=== PATIENT | female | born 1985 | race Hispanic/Latino ===

== ENCOUNTER 2017-04-11 05:42 | Day surgery (SDC) | payer OTHER ==
[~2017-04-11] VITALS: Ht 154.9 cm; Wt 69.5 kg
[2017-04-11] VITALS (9 sets, daily range): BP systolic 100–115; BP diastolic 58–70; PULSE 67–81; RESP 16–23; O2SAT 97–100
[~2017-04-11 05:42] MED LIST: ASCO500C6 PO; VIT1TABL83 PO
[2017-04-11] MEDS ORDERED: Dexamethasone 4 mg/mL Inj ONE (05:43)
[2017-04-11] MEDS ORDERED: Neostigmine 1 mg/mL 10 mL Inj ONE (05:43)
[2017-04-11] MEDS ORDERED: fentaNYL-PF 50 mCg/mL 2 mL Inj ONE (05:43)
[2017-04-11] MEDS ORDERED: MetoCLOpramide 5 mg/mL 2 mL Inj ONE (05:43)
[2017-04-11] MEDS ORDERED: Glycopyrrolate 0.2 MG/ML 1mL Inj ONE (05:43)
[2017-04-11] MEDS ORDERED: Propofol 10,000 mCg/mL 20 mL Inj ONE (05:43)
[2017-04-11] MEDS ORDERED: Rocuronium 10 mg/mL 5 mL Inj ONE (05:43)
[2017-04-11] MEDS ORDERED: Ondansetron 2 mg/mL 2 mL Inj ONE (05:43)
[2017-04-11] MEDS: Lactated Ringer's 1,000 ML IV SCH ×2 (05:57→07:51)
[2017-04-11] MEDS ORDERED: CeFAZolin 2 Gm/50 mL D5W IV Premix IV ONE (06:00)
[2017-04-11] MEDS ORDERED: MetoCLOpramide 5 mg/mL 2 mL Inj IVPUSH PRN (07:50)
[2017-04-11] MEDS ORDERED: fentaNYL-PF 50 mCg/mL 2 mL Inj IVPUSH PRN (07:50)
[2017-04-11] MEDS ORDERED: Bupivacaine-MPF 0.5% W/EPI 30 mL Inj INFILTRATE ONE (07:50)
[2017-04-11] MEDS ORDERED: Lactated Ringer's 1,000 ML IV SCH (07:50)
[2017-04-11] MEDS ORDERED: Lactated Ringer's 500 ML IV PRN (07:50)
[2017-04-11] MEDS ORDERED: Bupivacaine-MPF 0.25%/EPI 30 mL Inj INFILTRATE ONE (07:50)
[2017-04-11] MEDS ORDERED: Atropine 0.4 mg/mL Inj IVPUSH PRN (07:50)
[2017-04-11] MEDS ORDERED: HYDROmorphone 1 mg/mL Inj IVPUSH PRN (07:50)
[2017-04-11] MEDS ORDERED: Labetalol 5 mg/mL 4 mL Inj IV PRN (07:50)
[2017-04-11] MEDS ORDERED: Ondansetron 2 mg/mL 2 mL Inj IVPUSH PRN (07:50)
[2017-04-11] MEDS ORDERED: EPHEDrine Sulfate 50 mg/mL Inj IVPUSH PRN (07:50)
[2017-04-11] MEDS ORDERED: Phenylephrine 10,000 mCg/mL Inj IVPUSH PRN (07:50)
--- NOTE | 2017-04-11 07:50 | PCM.HPANE ---
Patient Data Surgeon Admitting Provider: Attending Provider:Stephy Ignacio MD Primary Care Physician:Luisa Weeks MD Other Provider:Rhonda Correaingham Anesthesia Reason for Visit Umbilical Hernia Ht/WT & BMI Height (Feet): 5 Height (Inches): 1 Weight (Kilograms): 69.5 Body Mass Index 28.00 Allergies Coded Allergies: promethazine (Verified Allergy, Unknown, tongue swelling, 04/05/17) Past Anesthesia History Anesthesia History: Denies:: Abnormal Airway, Anesthesia Reactions, Difficult Intubation, Fam Anesthesia Reaction, Fam Malignant Hypertherm, Malignant Hyperthermia Diabetes History Hx Diabetes?: No MRSA MRSA: No Medications Hypertension Medication: No Home Meds Incl Beta Holly: No Discontinued Reported Medications Vit B Comp/C/FA/Iron/Vit E (Vitamin B Complex Tablet)1 Each Tablet1 Each PO DAILY 04/05/17 Ascorbic Acid (Vitamin C)500 Mg Capsule.er500 Mg PO DAILY 04/05/17 History History of ENT Problems?: No HEENT History: Denies:: Abnormal Airway Cataracts Difficult Intubation Dysphagia Glaucoma Hearing Problem Sinus Problem Denture Type: None Teeth Condition: Within Normal Limits Hx of Heart Problems?: No Cardiovascular History: Denies:: AICD Abdominal Aortic Aneurism Atrial Fibrillation Cardiac Surgery Chest Pain Congestive Heart Failure Coronary Artery Disease Edema Heart Murmur Hypertension Irregular Heartbeat Pacemaker Peripheral Vascular Rheumatic Fever Thrombophlebitis Valvular Heart Disease Hx of Respiratory Problem?: No Respiratory History: Denies:: Asthma COPD Chest Surgery Cough Dyspnea Emphysema Hemoptysis Oxygen Administration Pneumonia Pulmonary Embolism Tuberculosis Use of C-PAP Machine Use of Inhalers / NEBS Hx Neurologic Problems?: No Neurological History: Denies:: Alzheimer's Disease CVA Dementia Dizziness Headaches Multiple Sclerosis Parkinson's Disease Peripheral Neuropathy Seizures TIA Hx of GI Problems?: Yes Gastrointestinal History: Denies:: Cirrhosis Diverticulitis Gall Bladder Disease Gastroesphageal Reflux Gastrointestinal Bleeding Heartburn Hepatitis Hiatal Hernia Liver Disease Rectal Bleeding Other GI Pertinent History: umbilical hernia current admission problem Hx of Problems?: No Genitourinary History: Denies:: HX of Hemodialysis Kidney Stones Urinary Tract Infection HX of Peritoneal Dialysis: No Female Hx: Denies:: Currently Endometriosis Pelvic Inflammatory Problems with Breasts? Skin History: Denies:: History Skin Disorders? Pressure Ulcers Hx Musculoskeletal Problems?: No Musculoskeletal History: Denies:: Back Injury Degenerative Joint Fibromyalgia Joint Replacement Musculoskeletal Trauma Myasthenia Gravis Osteoarthritis Rheumatoid Arthritis Systemic Lupus Hx of Psycho/Social Problems?: No Psycho Social History: Denies:: Anxiety Bipolar Disorder Hx Depression Suicide Attempt Hx Surgeries?: Yes (c sections x2, tonsillectomy) Hx Any Other Health Problems?: Yes Other History: Denies:: Cancer Thyroid Disease History Blood Transfusions: Positive for:: Accept Blood Products? Denies:: Blood Transfusions Hx Diabetes: No Hx Alcohol Use: YesAlcoholic Drinks Per Day: drinks one to two drinks monthly Hx Substance Use: NoHave You Smoked inLast 12 mo: No Stop/Bang S-Snoring: Do You Snore Loudly: No T-Tired: feel tired, fatigued: No O-Obsered: Observed not breath: No P-Blood Pressure: treated: No B- Body Mass Index > 35 kg/m2: No A- Age over 50: No N- Neck Large Circumference: No G- Gender Male: No ROLA Total Score: 0 Risk Assessment Category Category 1A: Patient has history of documented sleep apnea, and HAS NOT received any narcotic, sedative or anesthesia administration during this stay. Category 1B: Patient has history of documented sleep apnea, and HAS received any narcotic , sedative or anesthesia administration during this stay Category 2: Patient has SUSPECTED Obstructive Sleep Apnea, and HAS received any narcotic , sedative or anesthesia administration during this stay. Category 3: Patient has SUSPECTED Obstructive Sleep Apnea and HAS NOT received narcotic, sedative or anesthesia administration during this stay. Category 4: Outpatient in Procedural Areas with known sleep apnea or who screen positive for High Risk via the STOP/BANG questionnaire. Exam Exam Vital Signs Vital Signs Date Time Temp Pulse Resp B/P Pulse Ox O2 Delivery O2 Flow Rate FiO2 04/11/17 06:10 36.5 67 16 105/67 98 Room Air General Appearance: Alert, Oriented X3, Cooperative, No Acute Distress HEENT/AIRWAY: MP 2, Neck Movement (FROM) Lungs: Clear to Auscultation, Normal Air Movement Heart: Exam Unremarkable, Regular Rate/Rhythm, No Murmurs/Rubs/Gallops Meds/Labs/Diagnostics Admission Meds Current Medications Lactated Ringer's (Lr) 1,000 ml @ 120 mls/hr [id number] IV Last administered on t 05:57; Start 04/11/17 at 05:00; Stop 04/11/17 at 13:19 Plan Impression Patient chart reviewed, patient interviewed and anesthestic plan with risks, benefits, and alternatives discussed, and informed consent obtained. NPO per Anesth. Guidelines: Yes ASA Physical Status: ASA1 Normal Healthy Anesthetic Plan: GA Bene/Risks/Altern/Consents: Yes HP Complete Prior to Induction: Yes Tristian Colorado MD Apr 11, 2017 07:10
--- NOTE | 2017-04-11 08:47 | PCM.SURGOP ---
Surgical Operative Report Date of Service: Apr 11, 2017 Pre Operative Diagnosis Symptomatic umbilical hernia Post Operative Diagnosis Symptomatic umbilical hernia Procedure: Open primary umbilical hernia repair Surgeon and Build Engineer: Surgeon: Stephy Ignacio MD Assistants: Bladimir Malave MD R3; Nano Sims MS3 Indication for Procedure This is a 31-year-old woman who presented with a small primary umbilical hernia. It caused discomfort and she desired repair. Findings: The patient had a small umbilical hernia, with a 1 cm defect with incarcerated fat. There were no incarcerated viscera. Procedure Details The patient was brought to the operating room and placed in supine position. General anesthesia was induced. A warming blanket and SCDs were placed. Antibiotic for infused. The operative field was prepped and draped in sterile fashion. A pause was performed to confirm the correct patient, procedure, and site. A transverse infraumbilical incision was made and subcutaneous tissue was dissected down to the fascia. The umbilical hernia sac was identified adjacent to the umbilical stalk. It was dissected off of the stalk, amputated, and the fascia was cleared off. The defect was approximately 1 cm in size, too small to pass a finger tip. 4 interrupted 2-0 silk stitches were used to close it primarily. An umbilicoplasty was performed using 3-0 Vicryl to reattach the umbilical stalk to the fascia. Subcutaneous tissue was closed with interrupted 3-0 Vicryl. Skin was closed with 4-0 Monocryl. A sterile dressing was placed. The patient was awakened from anesthesia and taken to the postoperative care unit in good condition. Complications There were no periprocedural complications identified. Surgical Specimen Removed: Yes Specimen sent to Pathology: No Surgical Specimen description: Umbilical hernia sac Anesthetic Plan: GA Grafts, Implants: None Output, Estimated Blood Loss: 2 (ml) Blood Administration during fulton: No Stephy Ignacio MD Apr 11, 2017 08:47
[2017-04-11] MEDS ORDERED: oxyCODONE-Acetamin 5-325 mg Tablet PO PRN (08:50)
--- NOTE | 2017-04-11 08:52 | PCM.DISURG ---
Surgical Discharge Instruction Date of Service Apr 11, 2017 Dates of Hospitalization Date of Hospital Admission Providers Admitting Physician: Primary Care Physician: Luisa Weeks MD Attending Physician: Stephy Ignacio MD Discharge Diagnosis Post Operative diagnosis Symptomatic umbilical hernia Activity Discharge Activity-General: Activity as pain allows, No lifting >10 pounds for 4-6 weeks, No driving while taking narcotic Dressing and Incisional Care Dressing Care: Keep dressing clean, dry & intact, Allow Steri Stripes to fall off, Remove outer dressing after 24 hrs Hygiene: May shower after (24 hours), DO NOT soak incision under water, NO bathtub, hot tub or whirlpool Follow Up Plan Follow Up Plan Follow up in the general surgery clinic in 7-10 days. Call your provider for: Fever, Chills, Increasing abdominal pain, Nausea, Wound redness, Increasing wound pain, Warmth to touch, Discharge @ incision, pus discharge Alfonso Malave MD Apr 11, 2017 08:52
--- NOTE | 2017-04-11 09:50 | PCM.ANEP1 ---
Post Anesthesia PACU Phase 1 Assessment Vital Signs Vital Signs Date Time Temp Pulse Resp B/P Pulse Ox O2 Delivery O2 Flow Rate FiO2 04/11/17 09:20 36.9 68 18 104/62 99 Room Air 04/11/17 09:10 37.0 67 22 100/58 99 Room Air 04/11/17 09:00 68 21 111/59 100 Room Air 04/11/17 08:55 70 23 108/65 99 Room Air 04/11/17 08:50 75 22 107/68 98 Room Air 04/11/17 08:45 72 22 113/64 97 Room Air 04/11/17 08:40 37.2 81 18 113/63 97 Room Air 04/11/17 06:10 36.5 67 16 105/67 98 Room Air Anesthetic Administered: GA Level of Alertness: Awake, talking VIVAR's with Equal Strength: Yes Pain: No Nausea or Vomiting: No CV Function & Hydration Stable: No Airway Device: N/A Oxygen Delivery: Room Air Lungs: Clear to Auscultation, Normal Air Movement Dermatome Level: Full Sensation PACU Phase 2 Assessment Complications: No Follow up Care: N/A Patient Instructions Provided: N/A Tristian Colorado MD Apr 11, 2017 09:50
== END 2017-04-11 23:59 | disposition home or self-care (01) ==
LOC: SAS 05:42
PROVIDERS: ATTEND Surgery
PROC: 0WQF0ZZ Repair Abdominal Wall, Open Approach (ICD-10-PCS; principal; 2017-04-11 07:30)
DX: K42.0 Umbilical hernia with obstruction, without gangrene (principal)
CPT/HCPCS: 49587; J0690; J1100; J1885; J2250; J2405; J2710; J2765; J3010; J7120